=== PATIENT | male | born 1955 ===

== ENCOUNTER 2017-05-18 22:44 | Inpatient (IN) | payer MEDICARE, MEDICAID ==
[2017-05-18 23:02] VITALS: BMI 29.2
--- NOTE | 2017-05-18 23:58 | ED PDOC ---
HPI: Male Pain Chief Complaint (Provider): painful urination History Per: Patient History/Exam Limitations: no limitations Onset/Duration Of Symptoms: Days (3 days) Current Symptoms Are (Timing): Constant Pain Scale Rating Of: 10 Quality Of Discomfort: Burning Associated Symptoms: Fever, Chills, Loss Of Appetite, Constipation, Urinary Symptoms. denies: Nausea, Vomiting Alleviating Factors: None Additional History Per: Patient Additional Complaint(s): 62 yr old M presents to ED with complaint of worsening dysuria and hematuria for 4 days. Associated symptoms are loss of appetite, chills and fever. Patient reports he had a Greenlight laser procedure for tx of BPH with Dr. Flood on 05/07/17. He reports he was fine for a few days after the procedure and had no difficulty urinating. In the last 4 days he has decreased his fluid intake because "it hurts and daniels so much to urinate, bright red blood comes out". PMD: Arnold Bui Cna: Dr. Herrmann PMHx: IDDM (uncontrolled), HTN, BPH, herniated discs (lumbar spine), obesity, hypercholesterolemia, asthma, arthritis, gastritis SurgHx: Cholecystectomy, spinal injections FMHx: mother 84 yrs old with HTN/NIDDM/hx stroke, father at 88yrs old from massive stroke, siblings with BPH and HTN SocHx: denies smoking, Etoh or drugs, lives alone, worls as a helper driver Meds: Lisinopril 5mg PO QD, Januvia 50mg pO QD, Insulin Glargline 25 units QHS, Simvastatin 20 mg PO QHS, Pyridium 200mg PO QD, ASA 81mg (hasn't taken since 05/07/17), Wilber Allen Allergies: NKDA Emergency contacts: daughter Marianna Campahpi [phone]; son [facility] [phone] <Ellie So - Last Filed: 05/19/17 02:24> <Teddy Velasquez - Last Filed: 05/19/17 03:17> Time Seen by Provider: 05/18/17 23:09 Chief Complaint (Nursing): Male Genitourinary Supervising Attending Note - Attestation: I have personally seen and examined this patient.: Yes I have fully participated in the care of the patient.: Yes I have reviewed all pertinent clinical information, including history, physical exam and plan: Yes <Teddy Velasquez - Last Filed: 05/19/17 03:17> Past Medical History Vital Signs: Last Vital Signs Temp 99.8 F H 05/18/17 23:02 Pulse 84 05/18/17 23:02 Resp 18 05/18/17 23:02 BP 131/74 05/18/17 23:02 Pulse Ox 96 05/18/17 23:02 - Medical History PMH: Arthritis, Asthma, Diabetes (type II), Gastritis, HTN, Hypercholesterolemia Denies: Chronic Kidney Disease - Surgical History Surgical History: Cholecystectomy - Family History Family History: States: Stroke (mother and father), Diabetes (mother NIDDM), Hypertension - Living Arrangements Living Arrangements: Alone - Social History Current smoker - smoking cessation education provided: No Ex-Smoker (has not smoked in the last 12 months): No Alcohol: None Drugs: Denies <Ellie So - Last Filed: 05/19/17 02:24> Vital Signs: Last Vital Signs Temp 99.8 F H 05/18/17 23:02 Pulse 84 05/18/17 23:02 Resp 18 05/18/17 23:02 BP 131/74 05/18/17 23:02 Pulse Ox 96 05/19/17 02:24 <Teddy Velasquez - Last Filed: 05/19/17 03:17> - Home Medications Home Medications: Ambulatory Orders Medication Instructions Recorded Fluticasone Propionate [Flonase] 2 spr NS DAILY #1 bottle 10/21/15 Insulin Glargine, Recombina 25 units SQ HS 11/02/15 [Lantus] Simvastatin [Zocor] 20 mg PO HS 11/02/15 Lisinopril [Zestril] 5 mg PO DAILY #0 tab 11/04/15 SITagliptin [Januvia] 50 mg PO DAILY #0 tab 11/04/15 Aspirin [Aspirin Chewable] 81 mg PO DAILY 05/06/17 Ciprofloxacin [Cipro] 500 mg PO BID 05/06/17 Phenazopyridine [Pyridium] 200 mg PO DAILY 05/06/17 - Allergies Allergies/Adverse Reactions: Allergies Allergy/AdvReac Type Severity Reaction Status Date / Time No Known Allergies Allergy Verified 05/18/17 23:01 Review of Systems Constitutional: Positive for: Fever, Chills Eyes: Negative for: Vision Change ENT: Negative for: Ear Discharge, Nose Discharge Cardiovascular: Negative for: Chest Pain, Palpitations, Light Headedness Respiratory: Negative for: Cough, Shortness of Breath Gastrointestinal: Negative for: Nausea, Vomiting, Abdominal Pain Genitourinary Male: Positive for: Dysuria, Hematuria Skin: Negative for: Rash, Lesions Neurological: Negative for: Weakness, Dizziness <Ellie So - Last Filed: 05/19/17 02:24> Physical Exam - Physical Exam Appears: Positive for: Uncomfortable Head Exam: Positive for: ATRAUMATIC, NORMOCEPHALIC Eye Exam: Positive for: EOMI, PERRL ENT: Positive for: TM Is/Are (obscured by impacted cerumen bilaterally) Neck: Positive for: Normal Cardiovascular/Chest: Positive for: Regular Rate, Rhythm. Negative for: JVD, Murmur Respiratory: Positive for: Normal Breath Sounds. Negative for: Accessory Muscle Use, Rales, Rhonchi Pulses-Carotid (L): 2+ Pulses-Carotid (R): 2+ Pulses-Radial (L): 2+ Pulses-Radial (R): 2+ Gastrointestinal/Abdominal: Positive for: Bowel Sounds (normal), Soft, Tenderness (to palpation in low pelvic area). Negative for: Mass, Distended, Guarding Back: Negative for: L CVA Tenderness, R CVA Tenderness Extremity: Positive for: Normal ROM. Negative for: Pedal Edema, Deformity Neurologic/Psych: Positive for: Alert, cyanide pot tender II-XII, Oriented, Gait (normal) <Ellie So - Last Filed: 05/19/17 02:24> - Laboratory Results Result Diagrams: 05/18/17 23:59 05/18/17 23:59 - ECG O2 Sat by Pulse Oximetry: 96 - Progress ED Course And Treament: -CBC, CMP, lactic acid, UA, PT/PTT, Blood Cx, Urine Cx, Type and screen, Ketorolac 15mg IV - WBC 15, CT abd and pelvis without IV or PO contrast: instrumentation vs infection, possible prostatic abscess -Urology consult: Dr. Flood: Ceftriaxone and IV fluids -Admit to hospital Condition: Unchanged <Ellie So - Last Filed: 05/19/17 02:24> - Laboratory Results Result Diagrams: 05/18/17 23:59 05/18/17 23:59 <Teddy Velasquez - Last Filed: 05/19/17 03:17> Disposition - Patient ED Disposition Is Patient to be Admitted: Yes Discussed With : Artur Flood Doctor Will See Patient In The: Hospital - Disposition Disposition Time: 02:20 - Pt Status Changed To: Hospital Disposition Of: Inpatient - Admit Certification Admit to Inpatient:: After my assessment, the patient will require hospitalization for at least two midnights. This is because of the severity of symptoms shown, intensity of services needed, and/or the medical risk in this patient being treated as an outpatient. <Ellie So - Last Filed: 05/19/17 02:24> <Teddy Velasquez - Last Filed: 05/19/17 03:17> - Clinical Impression Clinical Impression: Urinary tract infection - Disposition Condition: FAIR
[2017-05-19 00:10] LABS: BASO # 0.1 K/uL (0.0-0.2); BASO % 0.9 % (0.0-2.0); EOS # 0.4 K/uL (0.0-0.7); EOS % 2.9 % (0.0-4.0); LYMPH % 13.2 % (20.0-40.0); MEAN CORPUSCULAR HGB CONC 32.6 g/dL (33.0-37.0); MEAN PLATELET VOLUME 8.1 fl (7.2-11.7); MONO # 0.7 K/uL (0.0-0.8); MONO % 4.5 % (0.0-10.0); NEUT # 11.8 K/uL (1.8-7.0); NEUT % 78.5 % (50.0-75.0); RED CELL DISTRIBUTION WIDTH 13.3 % (11.5-14.5)
[2017-05-19 00:20] LABS: PARTIAL THROMBOPLASTIN TIME 30.6 Seconds (25.6-37.1)
[2017-05-19 00:24] LABS: ALB/GLOB RATIO 1.2 (1.0-2.1); ALKALINE PHOSPHATASE 107 U/L (38-126); ALT/SGPT 37 U/L (21-72); AST/SGOT 21 U/L (17-59); BILIRUBIN,TOTAL 0.2 mg/dl (0.2-1.3); BLOOD UREA NITROGEN 20 mg/dl (9-20); CARBON DIOXIDE 24 mmol/L (22-30); CHLORIDE 103 mmol/L (98-107); GFR AFRICAN-AMERICAN > 60; GLUCOSE,RANDOM 275 mg/dL (75-110); POTASSIUM 4.2 MMOL/L (3.6-5.0); SODIUM 138 mmol/l (132-148)
[2017-05-19 00:42] LABS: RBC URINE 853 /hpf (0-3); URINE BACTERIA OCC (<OCC); URINE BILIRUBIN NEGATIVE (NEGATIVE); URINE BLOOD LARGE (NEGATIVE); URINE COLOR YELLOW (YELLOW); URINE GLUCOSE (UA) 50 mg/dL (Normal); URINE KETONE NEGATIVE (NEGATIVE); URINE LEUKOCYTE ESTERASE MOD Leu/uL (Negative); URINE PROTEIN >=500 mg/dL (NEGATIVE); URINE UROBILINOGEN 0.2-1.0 mg/dL (0.2-1.0); WBC URINE 345 /hpf (0-5)
--- NOTE | 2017-05-19 01:57 | CT ---
EXAM: CT Abdomen and Pelvis Without Intravenous Contrast EXAM DATE/TIME: 05/19/2017 12:18 AM CLINICAL HISTORY: 62 years old, male; Pain; Abdominal pain; Localized; Lower; Additional info: Hematuria, recent prostate procedure TECHNIQUE: Axial computed tomography images of the abdomen and pelvis without intravenous contrast. All CT scans at this facility use one or more dose reduction techniques, viz.: automated exposure control; ma/kV adjustment per patient size (including targeted exams where dose is matched to indication; i.e. head); or iterative reconstruction technique. Coronal and sagittal reformatted images were created and reviewed. COMPARISON: There are no prior studies for comparison. FINDINGS: Lower thorax: Heart size is normal. There is a hiatal hernia. There is airspace disease at the lung bases left greater than right. There is scarring at the lung bases. ABDOMEN: Liver: unremarkable Gallbladder and bile ducts: Gallbladder is absent.There is prominence of the common duct. Pancreas: Pancreas is mildly atrophic. Spleen: unremarkable Adrenals: There is small adrenal nodules. Kidneys and ureters: unremarkable Stomach and bowel: Stomach is incompletely distended. There is minimal radiopaque material in the stomach. Rotation is normal. There is fluid and air throughout the small bowel. There is no small bowel obstruction. Ileocecal region is unremarkable. Appendix and terminal ileum are unremarkable.There is scattered diverticulosis. Colon is incompletely distended which limits evaluation. Appendix: See stomach and bowel PELVIS: Bladder: Bladder is partially distended. There is mild bladder wall thickening. There is air in the bladder. Reproductive: The prostate is enlarged. There is a low attenuation mass in the prostate 2.6 x 3 cm. There is air in the periphery greatest anteriorly. There is prominence of the seminal vesicles. ABDOMEN and PELVIS: Intraperitoneal space:There is no free air. There is no free fluid. There is mild inflammation and edema in the pelvis. Bones/joints: There are degenerative changes in the osseus structures. Soft tissues: There is a small fat containing umbilical hernia. Vasculature: There are multiple phleboliths.There are vascular calcifications. Lymph nodes: There is shotty adenopathy. IMPRESSION: Bladder wall thickening, underdistention versus inflammation or muscular hypertrophy; air in the bladder recent instrumentation versus infection; low-attenuation prostate mass with air, post operative change versus infection Additional findings as described above.
[2017-05-19] MEDS ORDERED: Sodium Chloride 0.9% 1,000 ML IV STA ×2 (02:19→03:58)
[2017-05-19] MEDS ORDERED: cefTRIAXone 2 GM in Sodium Chloride 0.9% 100 ML IVPB STA (02:49)
[2017-05-19 02:58] LABS: VENOUS BLOOD GAS BASE EXCESS 2.4 mmol/L (0.0-2.0); VENOUS BLOOD GAS PCO2 42 mmHg (40-60); VENOUS BLOOD PH 7.42 (7.32-7.43)
[2017-05-19] MEDS ORDERED: cefTRIAXone 2 GM in Sodium Chloride 0.9% 100 ML IVPB SCH (09:00)
[2017-05-19] MEDS: Sodium Chloride 0.9% 1,000 ML IV SCH ×2 (09:13→17:56)
[2017-05-19] MEDS: Insulin Lispro (humaLOG) 100 Units/ml Inj SC SCH ×4 (11:28→22:02)
--- NOTE | 2017-05-19 12:19 | HP ---
ADMITTING HISTORY AND PHYSICAL HISTORY OF PRESENT ILLNESS: Mr. 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 He is status post GreenLight laser procedure about [address] Flood, the urologist and indicated that he had been feeling well until recently. He was seen in the emergency room and diagnosed with prostatitis and urinary tract infection with hematuria and admitted for workup and therapy. PAST MEDICAL HISTORY: Remarkable for diabetes mellitus, hypertension, benign prostatic hypertrophy, disk disease with lumbar spine involvement, obesity, hyperlipidemia, asthma, arthritis and gastritis. FAMILY HISTORY: Nonrevealing. 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 REVIEW OF SYSTEMS: Essentially remarkable for some difficulty with passing urine. PHYSICAL EXAMINATION: GENERAL: The patient is alert, oriented, appears to be much improved since being admitted to the hospital and been medicated with antibiotics, analgesics and given IV fluids. VITAL SIGNS: Blood pressure 131/77, pulse of 79, respiratory rate is 20, he is afebrile, O2 sat is 95% on room air. SKIN: Shows fair turgor. HEENT: Pupils equal and reactive to light and accommodation. Mouth shows fair hygiene. NECK: JVP flat. LUNGS: Clear. HEART: Regular. No murmurs or gallop. ABDOMEN: Soft with suprapubic tenderness. No organomegaly appreciated. There are normoactive bowel sounds. EXTREMITIES: Show no edema or cyanosis. GENITALIA: Normal. RECTAL: Normal. CENTRAL NERVOUS SYSTEM: Grossly intact. LABORATORY DATA: Remarkable for urinalysis does show large amounts of rbc's, large amounts of wbc's, occasional bacteria, occasional budding yeasts. WBC 15.0, hemoglobin 13.0, platelet count 396,000. Sodium 138, potassium 4.2, BUN of 20, creatinine 0.9, serum glucose 231, lactate 0.9. CT scan of abdomen and pelvis done in the emergency room was compatible with bladder wall thickening, under distention versus inflammation or muscular hypertrophy in the bladder due to recent instrumentation versus infection. Low-attenuation prostates. Mass with air. Postoperative changes versus infection. IMPRESSION: Hematuria with probable prostatitis and urinary tract infection. Rule out prostatic abscess, diabetes mellitus with hyperglycemia (poorly controlled), history of hypertension, history of asthma, history of disk disease. PLAN: IV hydration, analgesics for pains, IV antibiotics, Urology reevaluation. Further therapy will depend on Urology consultation. Mp Torres MD
[2017-05-19] MEDS ORDERED: INSULIN GLARGINE SQ SCH (22:00)
[2017-05-19] MEDS: Insulin Detemir 100 Units/ml Inj SC SCH (22:31)
[2017-05-20] MEDS: Sodium Chloride 0.9% 1,000 ML IV SCH (01:32)
[2017-05-20 06:13] LABS: BASO # 0.1 K/uL (0.0-0.2); BASO % 1.3 % (0.0-2.0); EOS # 0.5 K/uL (0.0-0.7); EOS % 4.6 % (0.0-4.0); HEMATOCRIT 38.8 % (35.0-51.0); LYMPH % 18.5 % (20.0-40.0); MEAN CORPUSCULAR HEMOGLOBIN 26.9 pg (27.0-31.0); MEAN CORPUSCULAR HGB CONC 32.4 g/dL (33.0-37.0); MEAN PLATELET VOLUME 7.9 fl (7.2-11.7); MONO # 0.6 K/uL (0.0-0.8); NEUT # 7.8 K/uL (1.8-7.0); NEUT % 70.6 % (50.0-75.0); RED CELL DISTRIBUTION WIDTH 13.2 % (11.5-14.5)
[2017-05-20 06:42] LABS: BLOOD UREA NITROGEN 13 mg/dl (9-20); CALCIUM 8.6 mg/dL (8.4-10.2); CARBON DIOXIDE 25 mmol/L (22-30); CHLORIDE 107 mmol/L (98-107); GFR AFRICAN-AMERICAN > 60; GLUCOSE,RANDOM 142 mg/dL (75-110); SODIUM 140 mmol/l (132-148)
[2017-05-20] MEDS: Insulin Lispro (humaLOG) 100 Units/ml Inj SC SCH ×4 (07:12→22:00)
[2017-05-20] MEDS: cefTRIAXone 2 GM in Sodium Chloride 0.9% 100 ML IVPB SCH (08:25)
--- NOTE | 2017-05-20 09:22 | CP.PCM.PN ---
Subjective - Date & Time of Evaluation Date of Evaluation: 05/20/17 Time of Evaluation: 09:24 - Subjective Subjective: DYSURIA IMPROVING HEMATURIA IMPROVING Objective - Vital Signs/Intake and Output Vital Signs (last 24 hours): Temp Pulse Resp BP Pulse Ox 98.4 F 77 20 137/78 97 05/20/17 07:36 05/20/17 08:25 05/20/17 07:36 05/20/17 08:25 05/20/17 07:36 Intake and Output: 05/20/17 05/20/17 06:59 18:59 Intake Total 250 Output Total 550 Balance -300 - Medications Medications: Current Medications Atorvastatin Calcium (Lipitor) 20 mg PO DAILY [facility] Home Med (Insulin Glargine, Recombina [Lantus]) 25 units SQ HS [facility] Ceftriaxone Sodium 2 gm/ (Sodium Chloride) 100 mls @ 100 mls/hr IVPB DAILY [facility] PRN Reason: Protocol Last Admin: 05/20/17 08:25 Dose: 100 mls/hr Insulin Detemir (Levemir) 25 units SC HS [facility] Last Admin: 05/19/17 22:31 Dose: 25 units Insulin Human Lispro (Humalog) 0 units SC ACHS [facility] PRN Reason: Protocol Last Admin: 05/20/17 07:12 Dose: Not Given Ketorolac Tromethamine (Toradol) 15 mg IVP Q8 PRN PRN Reason: Pain, severe (8-10) Last Admin: 05/19/17 21:28 Dose: 15 mg Lisinopril (Zestril) 5 mg PO DAILY [facility] Last Admin: 05/20/17 08:25 Dose: 5 mg Phenazopyridine HCl (Pyridium) 200 mg PO DAILY [facility] Last Admin: 05/20/17 08:24 Dose: 200 mg Sitagliptin Phosphate (Januvia) 50 mg PO DAILY [facility] Last Admin: 05/20/17 08:24 Dose: 50 mg - Labs Labs: 05/20/17 05:20 05/20/17 05:20 PT 11.9 Seconds (9.8-13.1) 05/18/17 23:59 INR 1.1 (0.9-1.2) 05/18/17 23:59 APTT 30.6 Seconds (25.6-37.1) 05/18/17 23:59 - Constitutional Appears: No Acute Distress - Head Exam Head Exam: ATRAUMATIC, NORMAL INSPECTION, NORMOCEPHALIC - Eye Exam Eye Exam: EOMI, Normal appearance, PERRL Pupil Exam: NORMAL ACCOMODATION, PERRL - ENT Exam ENT Exam: Mucous Membranes Moist, Normal Exam - Neck Exam Neck Exam: Full ROM, Normal Inspection. absent: Lymphadenopathy - Respiratory Exam Respiratory Exam: Clear to Ausculation Bilateral, NORMAL BREATHING PATTERN - Cardiovascular Exam Cardiovascular Exam: REGULAR RHYTHM, +S1, +S2. absent: Murmur - GI/Abdominal Exam GI & Abdominal Exam: Soft, Normal Bowel Sounds. absent: Tenderness - Rectal Exam Rectal Exam: NORMAL INSPECTION - Extremities Exam Extremities Exam: Full ROM, Normal Capillary Refill, Normal Inspection. absent : Joint Swelling, Pedal Edema - Back Exam Back Exam: NORMAL INSPECTION - Neurological Exam Neurological Exam: Alert, Awake, CN II-XII Intact, Normal Gait, Oriented x3 - Psychiatric Exam Psychiatric exam: Normal Affect, Normal Mood - Skin Skin Exam: Dry, Intact, Normal Color, Warm Assessment and Plan - Assessment and Plan (Free Text) Assessment: ACUTE PROSTATITIS PROSTATIC ABSCESS UTI DM HTN HYPERLIPIDEMIA Plan: CONTINUE IV ANTIBIOTICS AND ANALGESICS FOR PAIN AWAIT UROLOGY EVAL DISCHARGE IN AM IF STABLE
[2017-05-20] MEDS: Dextrose 5%/0.45% NS 1,000 ML IV SCH (09:53)
[2017-05-20] MEDS: Insulin Detemir 100 Units/ml Inj SC SCH (22:00)
[2017-05-21 01:02] VITALS: RESP 20
[2017-05-21] MEDS: Insulin Lispro (humaLOG) 100 Units/ml Inj SC SCH ×2 (07:00→12:40)
[2017-05-21 07:37] VITALS: BP 129/71; TEMP 98.1; O2SAT 95
[2017-05-21] MEDS: cefTRIAXone 2 GM in Sodium Chloride 0.9% 100 ML IVPB SCH (08:50)
--- NOTE | 2017-05-21 08:50 | CP.PCM.PN ---
Subjective - Date & Time of Evaluation Date of Evaluation: 05/21/17 Time of Evaluation: 08:40 - Subjective Subjective: UROLOGY Pt seen yesterday for gross hematuria followinf Laser TURP. 10 days prior. 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 Logic did not prevail and he returned to work on Saturday and the symptoms got much worse. He came to er and was admitted for gross hematuria and elevated WBC. With hydration, I(V antibiotics and rest the urine has completely resolved He can be discharged today with advise not to return to work until next week. I would suggest to give RX for ipro 500 mg #14 PO bid Objective - Vital Signs/Intake and Output Vital Signs (last 24 hours): Temp Pulse Resp BP Pulse Ox 98.1 F 64 20 129/71 95 05/21/17 07:36 05/21/17 07:36 05/21/17 07:36 05/21/17 07:36 05/21/17 07:36 Intake and Output: 05/21/17 05/21/17 06:59 18:59 Intake Total 984 Output Total 1060 Balance -76 - Medications Medications: Current Medications Atorvastatin Calcium (Lipitor) 20 mg PO DAILY [facility] Last Admin: 05/20/17 22:00 Dose: 20 mg Home Med (Insulin Glargine, Recombina [Lantus]) 25 units SQ HS [facility] Ceftriaxone Sodium 2 gm/ (Sodium Chloride) 100 mls @ 100 mls/hr IVPB DAILY [facility] PRN Reason: Protocol Last Admin: 05/20/17 08:25 Dose: 100 mls/hr Dextrose/Sodium Chloride (Dextrose 5%/0.45% Ns 1000 Ml) 1,000 mls @ 42 mls/hr IV .[id number] [facility] Stop: 05/21/17 09:24 Last Admin: 05/20/17 09:53 Dose: 42 mls/hr Insulin Detemir (Levemir) 25 units SC HS [facility] Last Admin: 05/20/17 22:00 Dose: 25 units Insulin Human Lispro (Humalog) 0 units SC ACHS [facility] PRN Reason: Protocol Last Admin: 05/21/17 07:00 Dose: Not Given Ketorolac Tromethamine (Toradol) 15 mg IVP Q8 PRN PRN Reason: Pain, severe (8-10) Last Admin: 05/21/17 02:23 Dose: 15 mg Lisinopril (Zestril) 5 mg PO DAILY [facility] Last Admin: 05/20/17 08:25 Dose: 5 mg Phenazopyridine HCl (Pyridium) 200 mg PO DAILY [facility] Last Admin: 05/20/17 08:24 Dose: 200 mg Sitagliptin Phosphate (Januvia) 50 mg PO DAILY [facility] Last Admin: 05/20/17 08:24 Dose: 50 mg - Labs Labs: 05/20/17 05:20 05/20/17 05:20 PT 11.9 Seconds (9.8-13.1) 05/18/17 23:59 INR 1.1 (0.9-1.2) 05/18/17 23:59 APTT 30.6 Seconds (25.6-37.1) 05/18/17 23:59
[2017-05-21 08:51] VITALS: PULSE 74
--- NOTE | 2017-05-21 09:48 | CP.PCM.DIS ---
Provider - Provider Date of Admission: 05/19/17 10:06 Attending physician: Mp Torres MD Time Spent in preparation of Discharge (in minutes): 30 Diagnosis - Discharge Diagnosis (1) Prostatitis Status: Acute (2) Hypertension Status: Acute (3) Urinary tract infection Status: Acute (4) Type 2 diabetes mellitus without complications Status: Chronic (5) Hyperlipidemia Status: Acute Hospital Course - Lab Results Lab Results: Micro Results 05/18/17 23:57 Blood Blood Culture - Preliminary NO GROWTH AFTER 48 HOURS 05/18/17 00:30 Blood Blood Culture - Preliminary NO GROWTH AFTER 48 HOURS 05/18/17 23:57 Urine Urine Culture - Final Yeast Species Most Recent Lab Values WBC 11.0 K/uL (4.8-10.8) H 05/20/17 05:20 RBC 4.67 Mil/uL (4.40-5.90) 05/20/17 05:20 Hgb 12.6 g/dL (12.0-18.0) 05/20/17 05:20 Hct 38.8 % (35.0-51.0) 05/20/17 05:20 MCV 83.0 fl (80.0-94.0) 05/20/17 05:20 MCH 26.9 pg (27.0-31.0) L 05/20/17 05:20 MCHC 32.4 g/dL (33.0-37.0) L 05/20/17 05:20 RDW 13.2 % (11.5-14.5) 05/20/17 05:20 Plt Count 406 K/uL (130-400) H 05/20/17 05:20 MPV 7.9 fl (7.2-11.7) 05/20/17 05:20 Neut % (Auto) 70.6 % (50.0-75.0) 05/20/17 05:20 Lymph % (Auto) 18.5 % (20.0-40.0) L 05/20/17 05:20 [place] % (Auto) 5.0 % (0.0-10.0) 05/20/17 05:20 Eos % (Auto) 4.6 % (0.0-4.0) H 05/20/17 05:20 Baso % (Auto) 1.3 % (0.0-2.0) 05/20/17 05:20 Neut # 7.8 K/uL (1.8-7.0) H 05/20/17 05:20 Lymph # 2.0 K/uL (1.0-4.3) 05/20/17 05:20 [place] # 0.6 K/uL (0.0-0.8) 05/20/17 05:20 Eos # 0.5 K/uL (0.0-0.7) 05/20/17 05:20 Baso # 0.1 K/uL (0.0-0.2) 05/20/17 05:20 PT 11.9 Seconds (9.8-13.1) 05/18/17 23:59 INR 1.1 (0.9-1.2) 05/18/17 23:59 APTT 30.6 Seconds (25.6-37.1) 05/18/17 23:59 pO2 35 mm/Hg (30-55) 05/19/17 02:50 VBG pH 7.42 (7.32-7.43) 05/19/17 02:50 VBG pCO2 42 mmHg (40-60) 05/19/17 02:50 VBG HCO3 26.0 mmol/L 05/19/17 02:50 VBG Total CO2 28.5 mmol/L (22-28) H 05/19/17 02:50 VBG O2 Sat (Calc) 75.6 % (40-65) H 05/19/17 02:50 VBG Base Excess 2.4 mmol/L (0.0-2.0) H 05/19/17 02:50 VBG Potassium 4.3 mmol/L (3.6-5.2) 05/19/17 02:50 Sodium 134.0 mmol/L (132-148) 05/19/17 02:50 Chloride 101.0 mmol/L (98-107) 05/19/17 02:50 Glucose 286 mg/dL (75-110) H 05/19/17 02:50 Lactate 0.8 mmol/L (0.7-2.1) 05/19/17 02:50 FiO2 21.0 % 05/19/17 02:50 Sodium 140 mmol/l (132-148) 05/20/17 05:20 Potassium 4.0 MMOL/L (3.6-5.0) 05/20/17 05:20 Chloride 107 mmol/L (98-107) 05/20/17 05:20 Carbon Dioxide 25 mmol/L (22-30) 05/20/17 05:20 Anion Gap 12 (10-20) 05/20/17 05:20 BUN 13 mg/dl (9-20) 05/20/17 05:20 Creatinine 0.7 mg/dl (0.8-1.5) L 05/20/17 05:20 Est GFR ( Amer) > 60 05/20/17 05:20 Est GFR (Non-Af Amer) > 60 05/20/17 05:20 POC Glucose (mg/dL) 131 mg/dL (65-110) H 05/21/17 05:37 Random Glucose 142 mg/dL (75-110) H 05/20/17 05:20 Lactic Acid 0.9 MMOL/L (0.7-2.1) 05/18/17 23:59 Calcium 8.6 mg/dL (8.4-10.2) 05/20/17 05:20 Total Bilirubin 0.2 mg/dl (0.2-1.3) 05/18/17 23:59 AST 21 U/L (17-59) 05/18/17 23:59 ALT 37 U/L (21-72) 05/18/17 23:59 Alkaline Phosphatase 107 U/L (38-126) 05/18/17 23:59 Total Protein 7.0 G/DL (6.3-8.2) 05/18/17 23:59 Albumin 3.8 g/dL (3.5-5.0) 05/18/17 23:59 Globulin 3.2 gm/dL (2.2-3.9) 05/18/17 23:59 Albumin/Globulin Ratio 1.2 (1.0-2.1) 05/18/17 23:59 Venous Blood Potassium 4.3 mmol/L (3.6-5.2) 05/19/17 02:50 Urine Color Yellow (YELLOW) 05/18/17 23:59 Urine Clarity Cloudy (Clear) 05/18/17 23:59 Urine pH 5.0 (5.0-8.0) 05/18/17 23:59 Ur Specific [place] 1.028 (1.003-1.030) 05/18/17 23:59 Urine Protein >=500 mg/dL (NEGATIVE) 05/18/17 23:59 Urine Glucose (UA) 50 mg/dL (Normal) 05/18/17 23:59 Urine Ketones Negative mg/dL (NEGATIVE) 05/18/17 23:59 Urine Blood Large (NEGATIVE) 05/18/17 23:59 Urine Nitrate Negative (NEGATIVE) 05/18/17 23:59 Urine Bilirubin Negative (NEGATIVE) 05/18/17 23:59 Urine Urobilinogen 0.2-1.0 mg/dL (0.2-1.0) 05/18/17 23:59 Ur Leukocyte Esterase Mod [place]/uL (Negative) 05/18/17 23:59 Urine RBC (Auto) 853 /hpf (0-3) H 05/18/17 23:59 Urine Microscopic WBC 345 /hpf (0-5) H 05/18/17 23:59 Ur Squamous Epith Cells 1 /hpf (0-5) 05/18/17 23:59 Urine Bacteria Occ (<OCC) H 05/18/17 23:59 Urine Yeast (Budding) Occ /hpf (NEGATIVE) H 05/18/17 23:59 Blood Type O POSITIVE 05/18/17 23:42 Blood Type Confirm O POSITIVE 05/19/17 00:55 Antibody Screen Negative 05/18/17 23:42 BBK History Checked No verified bt 05/18/17 23:42 - Hospital Course Hospital Course: dysuria resolved urine--yeast Discharge Exam - Head Exam Head Exam: ATRAUMATIC, NORMAL INSPECTION, NORMOCEPHALIC - Eye Exam Eye Exam: EOMI, Normal appearance, PERRL Pupil Exam: NORMAL ACCOMODATION, PERRL - GI/Abdominal Exam GI & Abdominal Exam: Normal Bowel Sounds - Rectal Exam Rectal Exam: NORMAL INSPECTION - Neurological Exam Neurological exam: Alert, CN II-XII Intact, Normal Gait, Oriented x3, Reflexes Normal - Psychiatric Exam Psychiatric exam: Normal Affect, Normal Mood - Skin Skin Exam: Dry, Intact, Normal Color, Warm Discharge Plan - Follow Up Plan Condition: FAIR Disposition: HOME/ ROUTINE Patient education suggested?: Yes Instructions: Prostatitis (DC), Acute Hematuria (DC) Referrals: Artur Flood MD [Medical Doctor] - Ronel Herrmann MD [Medical Doctor] - Arnold Han MD [Family Provider] -
[2017-05-21] MEDS: Dextrose 5%/0.45% NS 1,000 ML IV SCH (10:05)
--- NOTE | 2017-05-22 08:51 | PQF GENQUE ---
This form is a permanent part of the medical record DR. MAIA BRAGG: COULD YOU PLEASE CONFIRM THE CAUSE OF HEMATURIA OR UNDETERMINED. Clarification of your documentation is requested to better reflect the severity of illness and intensity of treatment of your patient. Indicators present [] Specify: [] [] Specify: [] [] Specify: [] [] Specify: [] Location in the medical record that reflects the above clinical findings: [] Treatment Provided: [] PHYSICIAN'S RESPONSE Based on your medical judgment of the clinical indicators outlined above please clarify the following: [x] Practitioner response --HEMATURIA DUE TO ACUTE PROSTATITIS [] If unable to determine, please check the box, sign and date. Present On Admission (POA) Indicator: [] Present at the time of admission [] Not present at the time of admission [] Clinically Undetermined In responding to this query, please exercise your independent professional judgment. The fact that a question is asked does not imply that any particular answer is desired or expected. Thank you for your clarification on this documentation. If you have any questions please call:[ ] * Thank you, * JAY JAY FELIPE [ [phone] thread clipper VICTORIA
== END 2017-05-21 14:33 | disposition home or self-care (01) | DRG 728 ==
LOC: H.ER 22:44 → H.ERHOLD 05-19 02:18 → H.MEDSURG1 05-19 04:15 → OBSVTOIN 05-19 10:06
PROVIDERS: ADMIT Internal Medicine Pulmonary Disease; ATTEND Internal Medicine Pulmonary Disease
DX: N41.0 Acute prostatitis (principal); E11.65 Type 2 diabetes mellitus with hyperglycemia; I10 Essential (primary) hypertension; N39.0 Urinary tract infection, site not specified; N41.2 Abscess of prostate; E11.9 Type 2 diabetes mellitus without complications; E78.00 Pure hypercholesterolemia, unspecified; E78.5 Hyperlipidemia, unspecified; J45.909 Unspecified asthma, uncomplicated; N40.0 Benign prostatic hyperplasia without lower urinary tract symptoms; R31.0 Gross hematuria; Z79.4 Long term (current) use of insulin; Z79.899 Other long term (current) drug therapy; Z82.3 Family history of stroke; Z82.49 Family history of ischemic heart disease and other diseases of the circulatory system; Z83.3 Family history of diabetes mellitus; E66.9 Obesity, unspecified; Z68.29 Body mass index [BMI] 29.0-29.9, adult; K29.70 Gastritis, unspecified, without bleeding; M19.90 Unspecified osteoarthritis, unspecified site; Z79.84 Long term (current) use of oral hypoglycemic drugs; R30.0 Dysuria

== ENCOUNTER 2017-07-08 16:05 | Emergency (ER) | payer MEDICARE, MEDICAID ==
[2017-07-08 16:05] VITALS: BMI 29.2
[2017-07-08 16:34] VITALS: BP 123/63; PULSE 94; RESP 16; TEMP 99.2; O2SAT 100
[2017-07-08] MEDS ORDERED: Albuterol-Ipratrop 3 mg / 0.5 (3 ml) UD INH STA (16:51)
--- NOTE | 2017-07-08 16:56 | ED PDOC ---
HPI: CCC, URI, Sore Throat Time Seen by Provider: 07/08/17 16:50 Chief Complaint (Nursing): Flu-like Symptoms Chief Complaint (Provider): Cough, fever, chills History Per: Patient History/Exam Limitations: no limitations Onset/Duration Of Symptoms: Days (1) Additional Complaint(s): Patient is a 62 y/o male with a past medical history of asthma presenting to the emergency department for a cough, fever, chills, and a sore throat ongoing for one day. Reports using a pump but it may not be working well. Reports known sick contacts. Denies any other complaints. PCP: none provided. Past Medical History Reviewed: Historical Data, Nursing Documentation, Vital Signs Vital Signs: Last Vital Signs Temp 99.2 F 07/08/17 16:31 Pulse 94 H 07/08/17 16:31 Resp 16 07/08/17 16:31 BP 123/63 07/08/17 16:31 Pulse Ox 100 07/08/17 16:59 - Medical History PMH: Arthritis, Asthma, Diabetes (type II), Gastritis, HTN, Hypercholesterolemia Denies: Chronic Kidney Disease - Surgical History Surgical History: Cholecystectomy - Family History Family History: States: Unknown Family Hx, Stroke (mother and father), Diabetes (mother NIDDM), Hypertension - Home Medications Home Medications: Ambulatory Orders Medication Instructions Recorded Fluticasone Propionate [Flonase] 2 spr NS DAILY #1 bottle 10/21/15 Insulin Glargine, Recombina 25 units SQ HS 11/02/15 [Lantus] Simvastatin [Zocor] 20 mg PO HS 11/02/15 Lisinopril [Zestril] 5 mg PO DAILY #0 tab 11/04/15 Aspirin [Aspirin Chewable] 81 mg PO DAILY 05/06/17 Ciprofloxacin [Cipro] 500 mg PO BID 05/06/17 Phenazopyridine [Pyridium] 200 mg PO DAILY 05/06/17 SITagliptin [Januvia] 50 mg PO BID 05/19/17 Fluconazole [Diflucan] 100 mg PO DAILY #5 tab 05/21/17 Acetaminophen [Acetaminophen Extra 2 tab PO Q6 PRN #24 tablet 07/08/17 Strength] Albuterol HFA [Ventolin HFA 90 2 puff IH [id number] PRN #1 inhaler 07/08/17 mcg/actuation (8 g)] Oseltamivir [Tamiflu] 75 mg PO BID #9 cap 07/08/17 Promethazine/Codeine 5 ml PO DAILY PRN #100 ml 07/08/17 [Codeine/Promethazine 10 MG/5 Ml-6.25 MG/5 Ml] - Allergies Allergies/Adverse Reactions: Allergies Allergy/AdvReac Type Severity Reaction Status Date / Time No Known Allergies Allergy Verified 05/18/17 23:01 Review of Systems ROS Statement: Except As Marked, All Systems Reviewed And Found Negative Constitutional: Positive for: Fever, Chills ENT: Positive for: Throat Pain Respiratory: Positive for: Cough Physical Exam - Reviewed Nursing Documentation Reviewed: Yes Vital Signs Reviewed: Yes - Physical Exam Appears: Positive for: Well, Non-toxic, No Acute Distress Head Exam: Positive for: ATRAUMATIC, NORMAL INSPECTION, NORMOCEPHALIC Skin: Positive for: Normal Color, Warm, Dry Eye Exam: Positive for: Normal appearance ENT: Positive for: Normal ENT Inspection, Pharynx Is (normal). Negative for: Pharyngeal Erythema Neck: Positive for: Normal, Painless ROM Cardiovascular/Chest: Positive for: Regular Rate, Rhythm Respiratory: Positive for: Accessory Muscle Use, Rhonchi (rhonchi bilaterally), Respiratory Distress. Negative for: Normal Breath Sounds Neurologic/Psych: Positive for: Alert, Oriented (x3) - ECG O2 Sat by Pulse Oximetry: 100 (RA) Pulse Ox Interpretation: Normal Medical Decision Making Medical Decision Making: Time: 16:50 Initial impression: cough, fever, chills, sore throat Initial plan: Albuterol 3 mL INH Toradol 30 mg IM Oseltamivir 75 mg PO Peak flow assessment pre and post treatment ~ Scribe Attestation: Documented by Marcia Urena, acting as a scribe for CODI Quach. Provider Scribe Attestation: All medical record entries made by the Scribe were at my direction and personally dictated by me. I have reviewed the chart and agree that the record accurately reflects my personal performance of the history, physical exam, medical decision making, and the department course for this patient. I have also personally directed, reviewed, and agree with the discharge instructions and disposition. Disposition - Clinical Impression Clinical Impression: Influenza - Patient ED Disposition Is Patient to be Admitted: No - Disposition Disposition: Routine/Home Disposition Time: 17:19 Condition: FAIR Prescriptions: Albuterol HFA [Ventolin HFA 90 mcg/actuation (8 g)] 2 puff IH [id number] PRN #1 inhaler PRN Reason: Cough Acetaminophen [Acetaminophen Extra Strength] 2 tab PO Q6 PRN #24 tablet PRN Reason: Fever >100.4 F Oseltamivir [Tamiflu] 75 mg PO BID #9 cap Promethazine/Codeine [Codeine/Promethazine 10 MG/5 Ml-6.25 MG/5 Ml] 5 ml PO DAILY PRN #100 ml PRN Reason: Cough Instructions: Influenza (ED) Forms: [facility] ([place]), [facility] ED School/Work Excuse Print Language: KYRGYZ
[2017-07-08] MEDS ORDERED: Albuterol-Ipratrop 3 mg / 0.5 (3 ml) UD ONE (17:08)
== END 2017-07-08 18:05 | disposition home or self-care (01) ==
LOC: H.ER 16:05
DX: J10.1 Influenza due to other identified influenza virus with other respiratory manifestations (principal)
CPT/HCPCS: 94640; 96372; 99281; J1885

== ENCOUNTER 2017-08-12 06:34 | Emergency (ER) | payer MEDICARE, MEDICAID ==
[2017-08-12 06:35] VITALS: BMI 29.2
[2017-08-12 06:59] VITALS: BP 134/78; PULSE 70; RESP 16; TEMP 98.3; O2SAT 96
--- NOTE | 2017-08-12 07:31 | ED PDOC ---
Upper Extremity Pain/Injury Time Seen by Provider: 08/12/17 07:11 Chief Complaint (Nursing): Upper Extremity Problem/Injury Chief Complaint (Provider): Upper Extremity Problem History Per: Patient History/Exam Limitations: no limitations Onset/Duration Of Symptoms: Persistent, Other (x2 months) Current Symptoms Are (Timing): Still Present Quality: Sharp Exacerbating Factor(s): Movement Additional Complaint(s): 62 year old male presents to ED with complaints of left shoulder pain x2 months and has a past medical history of asthma and HTN. Describes pain as sharp and radiating down his left arm. Notes that pain is worse with movement but denies acute injury or fall. Denies taking any medications for pain. PCP: ROLAND Past Medical History Reviewed: Historical Data, Nursing Documentation, Vital Signs Vital Signs: Last Vital Signs Temp 98.3 F 08/12/17 06:56 Pulse 70 08/12/17 06:56 Resp 16 08/12/17 06:56 BP 134/78 08/12/17 06:56 Pulse Ox 96 08/12/17 06:56 - Medical History PMH: Arthritis, Asthma, Diabetes (type II), Gastritis, HTN, Hypercholesterolemia Denies: Chronic Kidney Disease - Surgical History Surgical History: Cholecystectomy - Family History Family History: States: Unknown Family Hx, Stroke (mother and father), Diabetes (mother NIDDM), Hypertension - Living Arrangements Living Arrangements: With Family - Social History Current smoker - smoking cessation education provided: No Ex-Smoker (has not smoked in the last 12 months): No Alcohol: None Drugs: Denies - Home Medications Home Medications: Ambulatory Orders Medication Instructions Recorded Fluticasone Propionate [Flonase] 2 spr NS DAILY #1 bottle 10/21/15 Insulin Glargine, Recombina 25 units SQ HS 11/02/15 [Lantus] Simvastatin [Zocor] 20 mg PO HS 11/02/15 Lisinopril [Zestril] 5 mg PO DAILY #0 tab 11/04/15 Aspirin [Aspirin Chewable] 81 mg PO DAILY 05/06/17 Ciprofloxacin [Cipro] 500 mg PO BID 05/06/17 Phenazopyridine [Pyridium] 200 mg PO DAILY 05/06/17 SITagliptin [Januvia] 50 mg PO BID 05/19/17 Fluconazole [Diflucan] 100 mg PO DAILY #5 tab 05/21/17 Acetaminophen [Acetaminophen Extra 2 tab PO Q6 PRN #24 tablet 07/08/17 Strength] Albuterol HFA [Ventolin HFA 90 2 puff IH [id number] PRN #1 inhaler 07/08/17 mcg/actuation (8 g)] Oseltamivir [Tamiflu] 75 mg PO BID #9 cap 07/08/17 Promethazine/Codeine 5 ml PO DAILY PRN #100 ml 07/08/17 [Codeine/Promethazine 10 MG/5 Ml-6.25 MG/5 Ml] Naproxen [Naprosyn] 500 mg PO BID PRN #14 tablet 08/12/17 - Allergies Allergies/Adverse Reactions: Allergies Allergy/AdvReac Type Severity Reaction Status Date / Time No Known Allergies Allergy Verified 08/12/17 06:55 Review of Systems ROS Statement: Except As Marked, All Systems Reviewed And Found Negative Musculoskeletal: Positive for: Shoulder Pain (left), Arm Pain (left shoulder pain radiates down into left arm) Physical Exam - Reviewed Nursing Documentation Reviewed: Yes Vital Signs Reviewed: Yes - Physical Exam Appears: Positive for: Non-toxic, No Acute Distress Skin: Positive for: Normal Color, Warm, Dry Neck: Positive for: Normal, Painless ROM, Supple Pulses-Radial (L): 2+ Pulses-Radial (R): 2+ Back: Positive for: Normal Inspection. Negative for: Vertebral Tenderness Extremity: Positive for: Tenderness (tenderness to left shoulder). Negative for : Normal ROM (Loss of ROM of left shoulder, left elbow is benign), Deformity Neurologic/Psych: Positive for: Alert, Oriented. Negative for: Motor/Sensory Deficits - ECG O2 Sat by Pulse Oximetry: 96 (RA) Pulse Ox Interpretation: Normal Medical Decision Making Medical Decision Makin Initial plan: * XR SHOULDER LEFT * Toradol 30mg IM * Re-eval Time: 09:29 Left Shoulder X-Ray FINDINGS: BONES: Minor localized productive changes or on minor calcification along the cortical clavicular ligament JOINTS: Mild degenerative osteoarthritis left acromioclavicular and glenohumeral joints. SOFT TISSUES: Normal. OTHER FINDINGS: None. IMPRESSION: No evidence of acute displaced fracture nor dislocation. Minor DJD as above. Scribe Attestation: Documented by Marcie Jhaveri acting as a scribe for Wilian Cierra CASTRO, DO. DO Scribe Attestation: All medical record entries made by the Scribe were at my direction and personally dictated by me. I have reviewed the chart and agree that the record accurately reflects my personal performance of the history, physical exam, medical decision making, and the department course for this patient. I have also personally directed, reviewed, and agree with the discharge instructions and disposition. Scribe Attestation: Documented by Rio Carballo, acting as a scribe for Luis Norton III, DO Provider Scribe Attestation: All medical record entries made by the Scribe were at my direction and personally dictated by me. I have reviewed the chart and agree that the record accurately reflects my personal performance of the history, physical exam, medical decision making, and the department course for this patient. I have also personally directed, reviewed, and agree with the discharge instructions and disposition. Disposition - Clinical Impression Clinical Impression: Shoulder pain - Patient ED Disposition Is Patient to be Admitted: No - Disposition Referrals: Jomar Macias MD [Primary Care Provider] - Collin Garcia MD [Medical Doctor] - Disposition: Routine/Home Disposition Time: 11:20 Condition: STABLE Additional Instructions: Return to ER for any worse or new symptoms Wear sling for 3 days only Use naprosyn for pain as directed Prescriptions: Naproxen [Naprosyn] 500 mg PO BID PRN #14 tablet PRN Reason: Pain, Moderate (4-7) Instructions: Shoulder Pain (ED) Forms: [email or web address] (Irish)
--- NOTE | 2017-08-12 09:30 | RAD ---
PROCEDURE: Radiographs of the Left Shoulder HISTORY: Left shoulder pain. 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 SOFT TISSUES: Normal. OTHER FINDINGS: None. IMPRESSION: No evidence of acute displaced fracture nor dislocation. Minor DJD as above.
--- NOTE | 2017-08-12 13:19 | CARD ---
APPROVED REPORT EKG Measurement Heart [id number] <Conclusion> Normal sinus rhythm Normal ECG
== END 2017-08-12 11:34 | disposition home or self-care (01) ==
LOC: H.ER 06:34
DX: M19.012 Primary osteoarthritis, left shoulder (principal)
CPT/HCPCS: 73030; 93005; 96372; 99283; J1885

== ENCOUNTER 2017-10-02 15:21 | Emergency (ER) | payer MEDICARE, MEDICAID ==
[2017-10-02 15:21] VITALS: BMI 29.2
[2017-10-02 15:34] VITALS: BP 109/66; PULSE 82; RESP 16; TEMP 98.3; O2SAT 96
[2017-10-02] MEDS ORDERED: Sodium Chloride 0.9% 1,000 ML IV STA (15:53)
--- NOTE | 2017-10-02 16:03 | ED PDOC ---
HPI: Abdomen Time Seen by Provider: 10/02/17 15:43 Chief Complaint (Nursing): Abdominal Pain History Per: Patient (This 62 yo male presents for evaluation of abdominal discomfort, bloating with mixed vomiting and loose stools for the past few days. Symptoms started about 4 days ago after he drank milk and then vomited after he woke up from sleeping. He has since had bloating generalized discomfort. He denies fever or chills but starting with vomiting and loose stools yesterday and which continued today.) History/Exam Limitations: no limitations Past Medical History Reviewed: Historical Data, Nursing Documentation, Vital Signs Vital Signs: Last Vital Signs Temp 98.3 F 10/02/17 15:32 Pulse 82 10/02/17 15:32 Resp 16 10/02/17 15:32 BP 109/66 10/02/17 15:32 Pulse Ox 96 10/02/17 16:04 - Medical History PMH: Arthritis, Asthma, Diabetes (type II), Gastritis, HTN, Hypercholesterolemia Denies: Chronic Kidney Disease - Surgical History Surgical History: Cholecystectomy - Family History Family History: States: Unknown Family Hx, Stroke (mother and father), Diabetes (mother NIDDM), Hypertension - Living Arrangements Living Arrangements: With Family - Home Medications Home Medications: Ambulatory Orders Medication Instructions Recorded Fluticasone Propionate [Flonase] 2 spr NS DAILY #1 bottle 10/21/15 Insulin Glargine, Recombina 25 units SQ HS 11/02/15 [Lantus] Simvastatin [Zocor] 20 mg PO HS 11/02/15 Lisinopril [Zestril] 5 mg PO DAILY #0 tab 11/04/15 Aspirin [Aspirin Chewable] 81 mg PO DAILY 05/06/17 Ciprofloxacin [Cipro] 500 mg PO BID 05/06/17 Phenazopyridine [Pyridium] 200 mg PO DAILY 05/06/17 SITagliptin [Januvia] 50 mg PO BID 05/19/17 Fluconazole [Diflucan] 100 mg PO DAILY #5 tab 05/21/17 Acetaminophen [Acetaminophen Extra 2 tab PO Q6 PRN #24 tablet 07/08/17 Strength] Albuterol HFA [Ventolin HFA 90 2 puff IH [id number] PRN #1 inhaler 07/08/17 mcg/actuation (8 g)] Oseltamivir [Tamiflu] 75 mg PO BID #9 cap 07/08/17 Promethazine/Codeine 5 ml PO DAILY PRN #100 ml 07/08/17 [Codeine/Promethazine 10 MG/5 Ml-6.25 MG/5 Ml] Naproxen [Naprosyn] 500 mg PO BID PRN #14 tablet 08/12/17 Bismuth Subsalicylate [Pepto 262 mg PO Q2H PRN #30 ctb 10/02/17 Bismol] Ondansetron [Zofran] 4 mg PO Q8H #9 tab 10/02/17 - Allergies Allergies/Adverse Reactions: Allergies Allergy/AdvReac Type Severity Reaction Status Date / Time No Known Allergies Allergy Verified 10/02/17 15:32 Review of Systems ROS Statement: Except As Marked, All Systems Reviewed And Found Negative Constitutional: Negative for: Fever, Chills Cardiovascular: Negative for: Chest Pain Respiratory: Negative for: Shortness of Breath Gastrointestinal: Positive for: Nausea, Vomiting, Abdominal Pain, Diarrhea. Negative for: Constipation, Melena, Hematochezia, Hematemesis, Rectal Pain Genitourinary Male: Negative for: Dysuria, Frequency Musculoskeletal: Negative for: Shoulder Pain, Back Pain Physical Exam - Reviewed Nursing Documentation Reviewed: Yes Vital Signs Reviewed: Yes - Physical Exam Appears: Positive for: Well, Non-toxic, No Acute Distress Head Exam: Positive for: ATRAUMATIC, NORMAL INSPECTION, NORMOCEPHALIC Skin: Positive for: Normal Color, Warm, DRY Eye Exam: Positive for: Normal appearance, EOMI ENT: Positive for: Normal ENT Inspection Neck: Positive for: Normal, Painless ROM, Supple Cardiovascular/Chest: Positive for: Regular Rate, Rhythm Respiratory: Positive for: CNT, Normal Breath Sounds Gastrointestinal/Abdominal: Positive for: Normal Exam, Soft, Tenderness ( minimal in the upper abdomen), Distended (softly). Negative for: Guarding, Rebound Back: Positive for: Normal Inspection Extremity: Positive for: Normal ROM Neurologic/Psych: Positive for: Alert, Oriented - Laboratory Results Result Diagrams: 10/02/17 16:32 10/02/17 16:32 - ECG O2 Sat by Pulse Oximetry: 96 Medical Decision Making Medical Decision Making: still feels a little gassy and crampy. Still has some loose stools. labs okay. x -rays - no obstruction. will d/c on peptobismol Disposition - Clinical Impression Clinical Impression: Gastroenteritis - Patient ED Disposition Is Patient to be Admitted: No Doctor Will See Patient In The: Office Counseled Patient/Family Regarding: Diagnosis, Need For Followup, Rx Given - Disposition Referrals: Kelsey Nuñez [Outside] Disposition: Routine/Home Disposition Time: 17:01 Condition: STABLE Prescriptions: Bismuth Subsalicylate [Pepto Bismol] 262 mg PO Q2H PRN #30 ctb PRN Reason: Diarrhea Ondansetron [Zofran] 4 mg PO Q8H #9 tab Instructions: Gastroenteritis (ED) Forms: [employer] (Lao) Print Language: MAORI - POA Present On Arrival: None
--- NOTE | 2017-10-02 16:27 | RAD ---
PROCEDURE: Radiographs of the chest and abdomen (obstructive series) HISTORY: Abdominal pain, nausea, vomiting, loose stool COMPARISON: No prior. TECHNIQUE: AP radiograph of the chest, with upright and supine radiographs of the abdomen. FINDINGS: CHEST: Lungs: The lungs are well inflated and clear. Cardiovascular: Normal size heart. No pulmonary vascular congestion. Pleura: No pleural fluid. No pneumothorax. Other findings: None. ABDOMEN AND PELVIS: Bowel: There is moderate amount of stool in the colon. The bowel gas pattern is nonspecific. Free air: None. Bones: Within normal limits for the patient's age. Other findings: Surgical clips in the right upper quadrant are related to prior cholecystectomy.. IMPRESSION: Constipation. Nonobstructive bowel-gas pattern. Clear lungs.
[2017-10-02 16:47] LABS: BASO % 0.5 % (0.0-2.0); EOS # 0.1 K/uL (0.0-0.7); EOS % 2.4 % (0.0-4.0); HEMOGLOBIN 14.1 g/dL (12.0-18.0); LYMPH # 1.7 K/uL (1.0-4.3); LYMPH % 26.6 % (20.0-40.0); MEAN CELL VOLUME 82.5 fl (80.0-94.0); MEAN CORPUSCULAR HEMOGLOBIN 27.2 pg (27.0-31.0); MEAN PLATELET VOLUME 9.1 fl (7.2-11.7); MONO # 0.5 K/uL (0.0-0.8); MONO % 7.5 % (0.0-10.0); NRBC % 0.1 % (0.0-0.0); RBC 5.19 Mil/uL (4.40-5.90); WHITE BLOOD COUNT 6.3 K/uL (4.8-10.8)
[2017-10-02 16:58] LABS: SQUAMOUS EPITHIAL < 1 /hpf (0-5); URINE BACTERIA RARE (<OCC); URINE BILIRUBIN NEGATIVE (NEGATIVE); URINE BLOOD NEGATIVE (NEGATIVE); URINE CLARITY SLIGHTY-CLOUDY (Clear); URINE COLOR YELLOW (YELLOW); URINE GLUCOSE (UA) >=500 mg/dL (Normal); URINE LEUKOCYTE ESTERASE NEG Leu/uL (Negative); URINE PROTEIN NEGATIVE (NEGATIVE)
[2017-10-02 16:58] LABS: ALB/GLOB RATIO 1.2 (1.0-2.1); ALBUMIN 3.2 g/dL (3.5-5.0); ALT/SGPT 32 U/L (21-72); AST/SGOT 32 U/L (17-59); BLOOD UREA NITROGEN 13 mg/dl (9-20); CALCIUM 8.3 mg/dL (8.4-10.2); GFR AFRICAN-AMERICAN > 60; GFR NON-AFRICAN AMERICAN > 60; LIPASE 43 U/L (23-300)
--- NOTE | 2017-10-04 18:22 | CARD ---
APPROVED REPORT EKG Measurement Heart [id number] <Conclusion> Normal sinus rhythm Normal ECG
== END 2017-10-02 17:09 | disposition home or self-care (01) ==
LOC: H.ER 15:21
DX: K52.9 Noninfective gastroenteritis and colitis, unspecified (principal); E11.9 Type 2 diabetes mellitus without complications; I10 Essential (primary) hypertension; J45.909 Unspecified asthma, uncomplicated; Z79.4 Long term (current) use of insulin; Z79.82 Long term (current) use of aspirin; E78.00 Pure hypercholesterolemia, unspecified
CPT/HCPCS: 74022; 80053; 81003; 82948; 83690; 85025; 93005; 96374; 99283; J7040

== ENCOUNTER 2017-10-18 02:40 | Emergency (ER) | payer MEDICARE, MEDICAID ==
[2017-10-18 02:40] VITALS: BMI 29.2
[2017-10-18] MEDS ORDERED: Sodium Chloride 0.9% 1,000 ML IV STA (03:28)
--- NOTE | 2017-10-18 03:36 | ED PDOC ---
HPI: General Adult Time Seen by Provider: 10/18/17 02:45 Chief Complaint (Nursing): Abdominal Pain Chief Complaint (Provider): Body Aches History Per: Patient History/Exam Limitations: no limitations Onset/Duration Of Symptoms: Days (x2) Current Symptoms Are (Timing): Still Present Additional Complaint(s): 62 year old male with a past medical history of arthritis, asthma, high cholesterol and dm presents to the ED complaining of body ache onset 2 days ago. Reports of associated symptoms of nausea and diarrhea. Patients states he was here on the for the same complaint and the symptoms went away but they came back. Denies fever. PMD: Provider TBD Past Medical History Reviewed: Historical Data, Nursing Documentation, Vital Signs Vital Signs: Last Vital Signs Temp 98.7 F 10/18/17 04:15 Pulse 85 10/18/17 06:00 Resp 20 10/18/17 06:00 BP 134/69 10/18/17 06:00 Pulse Ox 99 10/18/17 06:04 - Medical History PMH: Arthritis, Asthma, Diabetes (type II), Gastritis, HTN, Hypercholesterolemia Denies: Chronic Kidney Disease - Surgical History Surgical History: Cholecystectomy - Family History Family History: States: Unknown Family Hx, Stroke (mother and father), Diabetes (mother NIDDM), Hypertension - Home Medications Home Medications: Ambulatory Orders Medication Instructions Recorded Fluticasone Propionate [Flonase] 2 spr NS DAILY #1 bottle 10/21/15 Insulin Glargine, Recombina 25 units SQ HS 11/02/15 [Lantus] Simvastatin [Zocor] 20 mg PO HS 11/02/15 Lisinopril [Zestril] 5 mg PO DAILY #0 tab 11/04/15 Aspirin [Aspirin Chewable] 81 mg PO DAILY 05/06/17 Ciprofloxacin [Cipro] 500 mg PO BID 05/06/17 Phenazopyridine [Pyridium] 200 mg PO DAILY 05/06/17 SITagliptin [Januvia] 50 mg PO BID 05/19/17 Fluconazole [Diflucan] 100 mg PO DAILY #5 tab 05/21/17 Acetaminophen [Acetaminophen Extra 2 tab PO Q6 PRN #24 tablet 07/08/17 Strength] Albuterol HFA [Ventolin HFA 90 2 puff IH [id number] PRN #1 inhaler 07/08/17 mcg/actuation (8 g)] Oseltamivir [Tamiflu] 75 mg PO BID #9 cap 07/08/17 Promethazine/Codeine 5 ml PO DAILY PRN #100 ml 07/08/17 [Codeine/Promethazine 10 MG/5 Ml-6.25 MG/5 Ml] Naproxen [Naprosyn] 500 mg PO BID PRN #14 tablet 08/12/17 Bismuth Subsalicylate [Pepto 262 mg PO Q2H PRN #30 ctb 10/02/17 Bismol] Ondansetron [Zofran] 4 mg PO Q8H #9 tab 10/02/17 - Allergies Allergies/Adverse Reactions: Allergies Allergy/AdvReac Type Severity Reaction Status Date / Time No Known Allergies Allergy Verified 10/02/17 15:32 Review of Systems ROS Statement: Except As Marked, All Systems Reviewed And Found Negative Constitutional: Positive for: Other (body aches). Negative for: Fever Gastrointestinal: Positive for: Nausea, Diarrhea Physical Exam - Reviewed Nursing Documentation Reviewed: Yes Vital Signs Reviewed: Yes - Physical Exam Appears: Positive for: Well, Non-toxic, No Acute Distress Head Exam: Positive for: ATRAUMATIC, NORMAL INSPECTION, NORMOCEPHALIC Skin: Positive for: Normal Color, Warm Eye Exam: Positive for: EOMI, Normal appearance, PERRL ENT: Positive for: Normal ENT Inspection Neck: Positive for: Normal, Painless ROM, Supple. Negative for: Decreased ROM Cardiovascular/Chest: Positive for: Regular Rate, Rhythm. Negative for: Murmur Respiratory: Positive for: Normal Breath Sounds. Negative for: Decreased Breath Sounds, Accessory Muscle Use, Respiratory Distress Gastrointestinal/Abdominal: Positive for: Tenderness (diffused) Extremity: Positive for: Normal ROM. Negative for: Tenderness, Pedal Edema, Deformity Neurologic/Psych: Positive for: Alert, Oriented (x3). Negative for: Motor/ Sensory Deficits - Laboratory Results Result Diagrams: 10/18/17 04:04 10/18/17 04:04 - ECG O2 Sat by Pulse Oximetry: 99 (RA) Pulse Ox Interpretation: Normal Medical Decision Making Medical Decision Making: Time: 327 Initial Plan: --CMP --Lipase --CBC w/ differential --Normal Saline 1000 mls/hr --Pepcid 20mg --Zofran 4mg --Reevaluation Time: 0537 EXAM: CT Abdomen and Pelvis Without Intravenous Contrast FINDINGS: Lung bases: Mild parabronchial cuffing, which can be seen with bronchitis, reactive airway disease or viral pneumonitis versus mild failure.Bibasilar mild hazy patchy nonspecific infiltrates are present, consistent with atelectasis or pneumonia. Mediastinum: Small hiatal hernia. ABDOMEN: Liver: Possible fatty liver. Gallbladder and bile ducts: Cholecystectomy. Pancreas: Unremarkable. No ductal dilation. Spleen: Unremarkable. No splenomegaly. Adrenals: Unremarkable. No mass. Kidneys and ureters: Unremarkable. No obstructing stones. No hydronephrosis. Stomach and bowel: There are nonspecific fluid filled stomach, small bowel loops and colon. These findings can represent ileus versus gastroenteritis/enterocolitis versus slow transit versus peristalsis. Diverticulosis. There is thickening of the rectosigmoid region likely due to underdistention versus nonspecific colitis. Duodenal diverticulum. Appendix: The appendix is partially located in the Kong's pouch. Appendix is seen and is top normal in thickness measuring 6 to 7 mm with no periappendiceal stranding. PELVIS: Bladder: Partially decompressed bladder with bladder wall thickening. Correlation with urinalysis is recommended only if clinical cystitis is suspected. There is interval improvement in the appearance of the bladder when compared to prior examination from May 19, 2017. Reproductive: Enlarged prostate gland with calcifications. ABDOMEN and PELVIS: Intraperitoneal space: Unremarkable. No free air. No significant fluid collection. Bones/joints: No acute fracture. No dislocation. Soft tissues: Bilateral inguinal herniation of fat. Vasculature: The aorta demonstrates calcified plaque and is mildly ectatic but normal in caliber. Pelvic phleboliths. No abdominal aortic aneurysm. Lymph nodes: Subcentimeter mesenteric lymph nodes. IMPRESSION: 1. There are nonspecific fluid filled stomach, small bowel loops and colon. These findings can represent ileus versus gastroenteritis/enterocolitis versus slow transit versus peristalsis. 2.Mild parabronchial cuffing, which can be seen with bronchitis, reactive airway disease or viral pneumonitis versus mild failure.Bibasilar mild hazy patchy nonspecific infiltrates are present, consistent with atelectasis or pneumonia versus edema. Correlation with internal medicine evaluation and further workup or followup as recommended by patient's clinical data. Patient tolerated PO and will feels improved now.. discussed cT results. Patient's insulin-dependent and sugar was high and it will be checked again. Clinical Impression: Abdominal Pain, Gastroenteritis Upon provider evaluation patient is medically stable, and requires no further treatment in the ED at this time. Patient will be discharged. Counseling was provided and all questions were answered regarding diagnosis and need for follow up with PMD. There is agreement to discharge plan. Return if symptoms persist or worsen. Scribe Attestation: Documented by Ravi Gentile, acting as a scribe for Colten Barber MD Provider Scribe Attestation: All medical record entries made by the Scribe were at my direction and personally dictated by me. I have reviewed the chart and agree that the record accurately reflects my personal performance of the history, physical exam, medical decision making, and the department course for this patient. I have also personally directed, reviewed, and agree with the discharge instructions and disposition. Disposition - Clinical Impression Clinical Impression: Gastroenteritis, Abdominal pain - Patient ED Disposition Is Patient to be Admitted: No Counseled Patient/Family Regarding: Diagnosis, Need For Followup - Disposition Referrals: [facility] [Outside] [facility] [Outside] Disposition: Routine/Home Disposition Time: 05:55 Condition: IMPROVED Additional Instructions: follow up with your primary doctor in 1-2 days return to the ED with any worsening or concerning symptoms bland diet, advance diet slowly Instructions: Viral Gastroenteritis, Adult (DC) Forms: [employer] (Congolese) Print Language: ECUADOREAN
[2017-10-18 04:09] LABS: EOS # 0.3 K/uL (0.0-0.7); EOS % 3.6 % (0.0-4.0); HEMOGLOBIN 15.6 g/dL (12.0-18.0); LYMPH # 0.8 K/uL (1.0-4.3); MEAN CORPUSCULAR HEMOGLOBIN 27.9 pg (27.0-31.0); MEAN CORPUSCULAR HGB CONC 34.5 g/dL (33.0-37.0); MONO # 0.6 K/uL (0.0-0.8); MONO % 7.3 % (0.0-10.0); NEUT # 6.2 K/uL (1.8-7.0); NEUT % 79.1 % (50.0-75.0); RBC 5.6 Mil/uL (4.40-5.90); RED CELL DISTRIBUTION WIDTH 13.9 % (11.5-14.5); WHITE BLOOD COUNT 7.8 K/uL (4.8-10.8)
[2017-10-18 04:17] VITALS: TEMP 98.7
[2017-10-18 04:26] LABS: ALB/GLOB RATIO 1.1 (1.0-2.1); ALBUMIN 3.5 g/dL (3.5-5.0); ALT/SGPT 33 U/L (21-72); AST/SGOT 21 U/L (17-59); BLOOD UREA NITROGEN 20 mg/dl (9-20); CALCIUM 8.4 mg/dL (8.4-10.2); GFR AFRICAN-AMERICAN > 60; GFR NON-AFRICAN AMERICAN > 60; LIPASE 52 U/L (23-300)
[2017-10-18 04:38] LABS: SQUAMOUS EPITHIAL < 1 /hpf (0-5); URINE BILIRUBIN NEGATIVE (NEGATIVE); URINE BLOOD NEGATIVE (NEGATIVE); URINE CLARITY SLIGHTY-CLOUDY (Clear); URINE COLOR YELLOW (YELLOW); URINE GLUCOSE (UA) >=500 mg/dL (Normal); URINE LEUKOCYTE ESTERASE NEG Leu/uL (Negative); URINE PROTEIN 30 mg/dL (NEGATIVE)
--- NOTE | 2017-10-18 05:38 | CT ---
EXAM: CT Abdomen and Pelvis Without Intravenous Contrast CLINICAL HISTORY: 62 years old, male; Pain; Abdominal pain; Generalized; Prior surgery; Surgery date: 6+ months; Surgery type: Gall ladder; Additional info: Abd pain TECHNIQUE: Axial computed tomography images of the abdomen and pelvis without intravenous contrast. All CT scans at this facility use one or more dose reduction techniques, viz.: automated exposure control; ma/kV adjustment per patient size (including targeted exams where dose is matched to indication; i.e. head); or iterative reconstruction technique. 613 images are submitted. Axial images are submitted in soft tissue and lung windows. Coronal and sagittal reformatted images were created and reviewed. COMPARISON: CT - ABD PELVIS W/O PO OR IV CONT 2017-05-19 01:13 FINDINGS: Lung bases: Mild parabronchial cuffing, which can be seen with bronchitis, reactive airway disease or viral pneumonitis versus mild failure.Bibasilar mild hazy patchy nonspecific infiltrates are present, consistent with atelectasis or pneumonia. Mediastinum: Small hiatal hernia. ABDOMEN: Liver: Possible fatty liver. Gallbladder and bile ducts: Cholecystectomy. Pancreas: Unremarkable. No ductal dilation. Spleen: Unremarkable. No splenomegaly. Adrenals: Unremarkable. No mass. Kidneys and ureters: Unremarkable. No obstructing stones. No hydronephrosis. Stomach and bowel: There are nonspecific fluid filled stomach, small bowel loops and colon. These findings can represent ileus versus gastroenteritis/enterocolitis versus slow transit versus peristalsis. Diverticulosis. There is thickening of the rectosigmoid region likely due to underdistention versus nonspecific colitis. Duodenal diverticulum. Appendix: The appendix is partially located in the Kong's pouch. Appendix is seen and is top normal in thickness measuring 6 to 7 mm with no periappendiceal stranding. PELVIS: Bladder: Partially decompressed bladder with bladder wall thickening. Correlation with urinalysis is recommended only if clinical cystitis is suspected. There is interval improvement in the appearance of the bladder when compared to prior examination from May 19, 2017. Reproductive: Enlarged prostate gland with calcifications. ABDOMEN and PELVIS: Intraperitoneal space: Unremarkable. No free air. No significant fluid collection. Bones/joints: No acute fracture. No dislocation. Soft tissues: Bilateral inguinal herniation of fat. Vasculature: The aorta demonstrates calcified plaque and is mildly ectatic but normal in caliber. Pelvic phleboliths. No abdominal aortic aneurysm. Lymph nodes: Subcentimeter mesenteric lymph nodes. IMPRESSION: 1. There are nonspecific fluid filled stomach, small bowel loops and colon. These findings can represent ileus versus gastroenteritis/enterocolitis versus slow transit versus peristalsis. 2.Mild parabronchial cuffing, which can be seen with bronchitis, reactive airway disease or viral pneumonitis versus mild failure.Bibasilar mild hazy patchy nonspecific infiltrates are present, consistent with atelectasis or pneumonia versus edema. Correlation with internal medicine evaluation and further workup or followup as recommended by patient's clinical data.
[2017-10-18] MEDS ORDERED: Insulin Regular 100 units/ml SC STA (05:59)
[2017-10-18 06:00] VITALS: BP 134/69; PULSE 85; RESP 20
[2017-10-18 06:04] VITALS: O2SAT 99
[2017-10-18] MEDS ORDERED: Insulin Regular 100 units/ml ONE (06:05)
== END 2017-10-18 07:00 | disposition home or self-care (01) ==
LOC: H.ER 02:40
DX: K52.9 Noninfective gastroenteritis and colitis, unspecified (principal); E11.9 Type 2 diabetes mellitus without complications; E78.00 Pure hypercholesterolemia, unspecified; I10 Essential (primary) hypertension; J45.909 Unspecified asthma, uncomplicated; M19.90 Unspecified osteoarthritis, unspecified site; Z79.4 Long term (current) use of insulin; Z79.82 Long term (current) use of aspirin
CPT/HCPCS: 74176; 80053; 81003; 82948; 83690; 85025; 87086; 96361; 96374; 96375; 99284; J2405; J7040

== ENCOUNTER 2018-04-05 06:38 | Emergency (ER) | payer MEDICARE, MEDICAID ==
[2018-04-05 06:38] VITALS: BMI 29.2
[2018-04-05] MEDS ORDERED: Albuterol-Ipratrop 3 mg / 0.5 (3 ml) UD IH STA ×2 (07:37→09:23)
--- NOTE | 2018-04-05 07:43 | ED PDOC ---
HPI: CCC, URI, Sore Throat Time Seen by Provider: 04/05/18 07:34 Chief Complaint (Nursing): Flu-like Symptoms Chief Complaint (Provider): Flu-like Symptoms History Per: Patient History/Exam Limitations: no limitations Onset/Duration Of Symptoms: Days (x 2) Current Symptoms Are (Timing): Still Present Location Of Pain: Throat, Headache Additional Complaint(s): 63 year old male with a history of asthma presents with a productive cough with white sputum, sore throat, headache, fever, wheezing and shortness of breath for 2 days. Patient reports no improvement with inhalers and PO antibiotics prescribed by PMD. Offers no other complaints. PMD: none provided Past Medical History Reviewed: Historical Data, Nursing Documentation, Vital Signs - Medical History PMH: Arthritis, Asthma, Diabetes (type II), Gastritis, HTN, Hypercholesterolemia Denies: Chronic Kidney Disease - Surgical History Surgical History: Cholecystectomy - Family History Family History: States: Unknown Family Hx, Stroke (mother and father), Diabetes (mother NIDDM), Hypertension - Home Medications Home Medications: Ambulatory Orders Medication Instructions Recorded Fluticasone Propionate [Flonase] 2 spr NS DAILY #1 bottle 10/21/15 Insulin Glargine, Recombina 25 units SQ HS 11/02/15 [Lantus] Simvastatin [Zocor] 20 mg PO HS 11/02/15 Lisinopril [Zestril] 5 mg PO DAILY #0 tab 11/04/15 Aspirin [Aspirin Chewable] 81 mg PO DAILY 05/06/17 Ciprofloxacin [Cipro] 500 mg PO BID 05/06/17 Phenazopyridine [Pyridium] 200 mg PO DAILY 05/06/17 SITagliptin [Januvia] 50 mg PO BID 05/19/17 Fluconazole [Diflucan] 100 mg PO DAILY #5 tab 05/21/17 Acetaminophen [Acetaminophen Extra 2 tab PO Q6 PRN #24 tablet 07/08/17 Strength] Albuterol HFA [Ventolin HFA 90 2 puff IH [id number] PRN #1 inhaler 07/08/17 mcg/actuation (8 g)] Oseltamivir [Tamiflu] 75 mg PO BID #9 cap 07/08/17 Promethazine/Codeine 5 ml PO DAILY PRN #100 ml 07/08/17 [Codeine/Promethazine 10 MG/5 Ml-6.25 MG/5 Ml] Naproxen [Naprosyn] 500 mg PO BID PRN #14 tablet 08/12/17 Bismuth Subsalicylate [Pepto 262 mg PO Q2H PRN #30 ctb 10/02/17 Bismol] Ondansetron [Zofran] 4 mg PO Q8H #9 tab 10/02/17 Albuterol HFA [Ventolin HFA 90 2 puff IH Q4H #1 puff 04/05/18 mcg/actuation (8 g)] Azithromycin [Zithromax] 500 mg PO DAILY #6 tab 04/05/18 Prednisone 50 mg PO DAILY #5 tab 04/05/18 - Allergies Allergies/Adverse Reactions: Allergies Allergy/AdvReac Type Severity Reaction Status Date / Time No Known Allergies Allergy Verified 10/02/17 15:32 Review of Systems ROS Statement: Except As Marked, All Systems Reviewed And Found Negative Constitutional: Positive for: Fever ENT: Positive for: Throat Pain Respiratory: Positive for: Cough, Shortness of Breath, Sputum (white), Wheezing Neurological: Positive for: Headache Physical Exam - Reviewed Nursing Documentation Reviewed: Yes Vital Signs Reviewed: Yes - Physical Exam Appears: Positive for: Non-toxic, No Acute Distress Head Exam: Positive for: ATRAUMATIC Skin: Positive for: Normal Color, Warm, Dry Eye Exam: Positive for: EOMI, Normal appearance, PERRL ENT: Positive for: Normal ENT Inspection Neck: Positive for: Normal, Painless ROM, Supple Cardiovascular/Chest: Positive for: Regular Rate, Rhythm. Negative for: Murmur Respiratory: Positive for: Rhonchi (scattered rhonchi bilaterally), Wheezing (mild expiratory wheezing). Negative for: Respiratory Distress Gastrointestinal/Abdominal: Positive for: Normal Exam, Soft. Negative for: Tenderness Extremity: Positive for: Normal ROM (x 4). Negative for: Deformity Neurologic/Psych: Positive for: Alert, Oriented (x 3). Negative for: Motor/Sensory Deficits - ECG Pulse Ox Interpretation: Normal Medical Decision Making Medical Decision Makin:17 Initial Plan: --Chest x-ray --Duoneb 3 ml INH --Peak flow pre/post --influenza AB --Rapid strep 08:38 Chest x-ray FINDINGS: LUNGS: Mild stable interstitial changes are appreciated. Minor bibasilar volume loss is noted. No focal alveolar infiltrate is seen. PLEURA: No significant pleural effusion identified. No pneumothorax apparent. CARDIOVASCULAR: Normal. OSSEOUS STRUCTURES: Degenerative changes in the spine. VISUALIZED UPPER ABDOMEN: Normal. OTHER FINDINGS: None. IMPRESSION: No focal infiltrate. No CHF. Stable mild interstitial changes. Results are negative for influenza and strep. Scribe Attestation: Documented by Jennifer Simms acting as a scribe for Tu Ocasio MD Provider Scribe Attestation: All medical record entries made by the Scribe were at my direction and personally dictated by me. I have reviewed the chart and agree that the record accurately reflects my personal performance of the history, physical exam, medical decision making, and the department course for this patient. I have also personally directed, reviewed, and agree with the discharge instructions and disposition. Disposition - Clinical Impression Clinical Impression: Asthma attack, Upper respiratory infection - Patient ED Disposition Is Patient to be Admitted: No Counseled Patient/Family Regarding: Studies Performed, Diagnosis, Need For Followup, Rx Given - Disposition Referrals: [facility] [Outside] Disposition: Routine/Home Disposition Time: 09:21 Condition: FAIR Prescriptions: Albuterol HFA [Ventolin HFA 90 mcg/actuation (8 g)] 2 puff IH Q4H #1 puff Azithromycin [Zithromax] 500 mg PO DAILY #6 tab Prednisone 50 mg PO DAILY #5 tab Instructions: Asthma in Adults, Bacterial Upper Respiratory Infection, Adult Forms: [employer] ([place])
--- NOTE | 2018-04-05 08:40 | RAD ---
Date of service: 04/05/2018 HISTORY: cough COMPARISON: No prior. TECHNIQUE: Chest PA and lateral FINDINGS: LUNGS: Mild stable interstitial changes are appreciated. Minor bibasilar volume loss is noted. No focal alveolar infiltrate is seen. PLEURA: No significant pleural effusion identified. No pneumothorax apparent. CARDIOVASCULAR: Normal. OSSEOUS STRUCTURES: Degenerative changes in the spine. VISUALIZED UPPER ABDOMEN: Normal. OTHER FINDINGS: None. IMPRESSION: No focal infiltrate. No CHF. Stable mild interstitial changes.
[2018-04-05] MEDS ORDERED: Albuterol-Ipratrop 3 mg / 0.5 (3 ml) UD ONE (09:38)
[2018-04-05 10:45] VITALS: O2SAT 98
== END 2018-04-05 10:45 | disposition home or self-care (01) ==
LOC: H.ER 06:38
DX: J45.909 Unspecified asthma, uncomplicated (principal); J06.9 Acute upper respiratory infection, unspecified; E11.9 Type 2 diabetes mellitus without complications; E78.00 Pure hypercholesterolemia, unspecified; I10 Essential (primary) hypertension; Z79.4 Long term (current) use of insulin

== ENCOUNTER 2018-05-03 20:22 | Emergency (ER) | payer MEDICARE, MEDICAID ==
[2018-05-03 20:22] VITALS: BMI 29.2
[2018-05-03 21:31] VITALS: RESP 16; O2SAT 96
[2018-05-03] MEDS ORDERED: Sodium Chloride 0.9% 1,000 ML IV STA (21:57)
--- NOTE | 2018-05-03 22:25 | ED PDOC ---
History of Present Illness History of Present Illness: 63 year old male with a history of dm, htn, and dyslipidemia presents to the ED with flu-like symptoms for x2 days. Patient has body aches, headache, sore throat, and fever. He saw his PMD today who put him on amoxicillin, of which he took 2 doses. Since then, symptoms have worsened, prompting ED visit. He denies chest pain, shortness of breath, vomiting, diarrhea or any other me dical complaints. PMD: Dr. Macias HPI: Influenza Time Seen by Provider: 05/03/18 21:55 Chief Complaint: Flu-like Symptoms Chief Complaint (Provider): Flu-like Symptoms History Per: Patient Exam Limitations: no limitations Onset/Duration Of Symptoms: Days (x2) Symptoms include: fever, headache, bodyaches, sore throat. denies: vomiting, diarrhea Past Medical History Reviewed: Historical Data, Nursing Documentation, Vital Signs Vital Signs: Last Vital Signs Temp 101.7 F H 05/03/18 21:26 Pulse 105 H 05/03/18 21:26 Resp 16 05/03/18 21:26 BP 155/75 H 05/03/18 21:26 Pulse Ox 96 05/03/18 21:26 - Medical History PMH: Arthritis, Asthma, Diabetes (type II), Gastritis, HTN, Hypercholesterolemia Denies: Chronic Kidney Disease - Surgical History Surgical History: Cholecystectomy - Family History Family History: States: Unknown Family Hx, Stroke (mother and father), Diabetes (mother NIDDM), Hypertension - Social History Current smoker - smoking cessation education provided: No Ex-Smoker (has not smoked in the last 12 months): No Alcohol: None Drugs: Denies - Home Medications Home Medications: Ambulatory Orders Medication Instructions Recorded Fluticasone Propionate [Flonase] 2 spr NS DAILY #1 bottle 10/21/15 Insulin Glargine, Recombina 25 units SQ HS 11/02/15 [Lantus] Simvastatin [Zocor] 20 mg PO HS 11/02/15 Lisinopril [Zestril] 5 mg PO DAILY #0 tab 11/04/15 Aspirin [Aspirin Chewable] 81 mg PO DAILY 05/06/17 Ciprofloxacin [Cipro] 500 mg PO BID 05/06/17 Phenazopyridine [Pyridium] 200 mg PO DAILY 05/06/17 SITagliptin [Januvia] 50 mg PO BID 05/19/17 Fluconazole [Diflucan] 100 mg PO DAILY #5 tab 05/21/17 Acetaminophen [Acetaminophen Extra 2 tab PO Q6 PRN #24 tablet 07/08/17 Strength] Albuterol HFA [Ventolin HFA 90 2 puff IH [id number] PRN #1 inhaler 07/08/17 mcg/actuation (8 g)] Oseltamivir [Tamiflu] 75 mg PO BID #9 cap 07/08/17 Promethazine/Codeine 5 ml PO DAILY PRN #100 ml 07/08/17 [Codeine/Promethazine 10 MG/5 Ml-6.25 MG/5 Ml] Naproxen [Naprosyn] 500 mg PO BID PRN #14 tablet 08/12/17 Bismuth Subsalicylate [Pepto 262 mg PO Q2H PRN #30 ctb 10/02/17 Bismol] Ondansetron [Zofran] 4 mg PO Q8H #9 tab 10/02/17 Albuterol HFA [Ventolin HFA 90 2 puff IH Q4H #1 puff 04/05/18 mcg/actuation (8 g)] Azithromycin [Zithromax] 500 mg PO DAILY #6 tab 04/05/18 Prednisone 50 mg PO DAILY #5 tab 04/05/18 Oseltamivir [Tamiflu] 75 mg PO BID #10 cap 05/04/18 - Allergies Allergies/Adverse Reactions: Allergies Allergy/AdvReac Type Severity Reaction Status Date / Time No Known Allergies Allergy Verified 05/03/18 21:26 Review of Systems ROS Statement: Except As Marked, All Systems Reviewed And Found Negative Constitutional: Positive for: Fever ENT: Positive for: Throat Pain Cardiovascular: Negative for: Chest Pain Respiratory: Negative for: Shortness of Breath Gastrointestinal: Negative for: Vomiting, Diarrhea Neurological: Positive for: Headache Physical Exam - Reviewed Nursing Documentation Reviewed: Yes Vital Signs Reviewed: Yes - Physical Exam Appears: Positive for: Uncomfortable Head Exam: Positive for: ATRAUMATIC, NORMOCEPHALIC Skin: Positive for: Normal Color, Warm, Dry Eye Exam: Positive for: Normal appearance, EOMI, PERRL ENT: Positive for: Other (dry mucous membranes) Neck: Positive for: Normal Cardiovascular/Chest: Positive for: Tachycardia, Other (regular rhythm) Respiratory: Positive for: Normal Breath Sounds. Negative for: Respiratory Distress Gastrointestinal/Abdominal: Positive for: Normal Exam, Soft. Negative for: Tenderness Extremity: Positive for: Normal ROM. Negative for: Pedal Edema, Deformity Neurologic/Psych: Positive for: Alert, Oriented (x3) Medical Decision Making Medical Decision Making: Time: 2155 Initial Impression: 63 year old with flu-like symptoms Initial Plan: --labs --EKG --CXR --IV fluids --Toradol --Tylenol Time: 00:50 Labs reviewed no clinically significant abnormalities. Patient reports improvement of symptoms and is stable for discharge. Diagnosis is influenza-like syndrome. Will treat patient for flu despite negative flu swab due to high cl inical suspicion based on symptoms and presentation. Patient was informed of return precautions and there is agreement to plan. Scribe Attestation: Documented by Simi Stephens, acting as a scribe for Corbin Cleaning MD Provider Scribe Attestation: All medical record entries made by the Scribe were at my direction and personally dictated by me. I have reviewed the chart and agree that the record accurately reflects my personal performance of the history, physical exam, medical decision making, and the department course for this patient. I have also personally directed, reviewed, and agree with the discharge instructions and disposition. - Laboratory Results Result Diagrams: 05/03/18 22:48 05/03/18 22:48 - ECG O2 Sat by Pulse Oximetry: 96 (RA) Pulse Ox Interpretation: Normal Disposition - Clinical Impression Clinical Impression: Influenza-like symptoms - Patient ED Disposition Is Patient to be Admitted: No - Disposition Disposition: Routine/Home Disposition Time: 00:50 Condition: STABLE Additional Instructions: LOIDA RAMSEY, thank you for letting us take care of you today. Your provider was Corbin Cleaning MD and you were treated for THROAT PAIN,FEVER. The emergency medical care you received today was directed at your acute symptoms. If you were prescribed any medication, please fill it and take as directed. It may take several days for your symptoms to resolve. Return to the Emergency Department if your symptoms worsen, do not improve, or if you have any other problems. Please contact your doctor or call one of the physicians/clinics you have been referred to that are listed on the Patient Visit Information form that is incl uded in your discharge packet. Bring any paperwork you were given at discharge with you along with any medications you are taking to your follow up visit. Our treatment cannot replace ongoing medical care by a primary care provider outside of the emergency department. Thank you for allowing the [facility] team to be part of your care today. If you had an X-Ray or CT scan: A Radiologist will review the ED reading if any change in treatment is needed we will contact you. If you had a blood, urine, or wound culture: It will take several days for the results, if any change in treatment is needed we will contact you. If you had an STI test: It will take 48 hours for the results. Please call after 1 week if you have not heard back. Prescriptions: Oseltamivir [Tamiflu] 75 mg PO BID #10 cap Instructions: Flu Forms: [employer] (Sami) Print Language: GABONESE
[2018-05-03 22:56] LABS: BASO # 0.2 K/uL (0.0-0.2); BASO % 1.1 % (0.0-2.0); EOS % 0.1 % (0.0-4.0); HEMOGLOBIN 14.8 g/dL (12.0-18.0); LYMPH # 1.2 K/uL (1.0-4.3); LYMPH % 8.8 % (20.0-40.0); MEAN CELL VOLUME 83.2 fl (80.0-94.0); MEAN CORPUSCULAR HEMOGLOBIN 27.4 pg (27.0-31.0); MEAN CORPUSCULAR HGB CONC 32.9 g/dL (33.0-37.0); MEAN PLATELET VOLUME 8.6 fl (7.2-11.7); MONO # 0.8 K/uL (0.0-0.8); MONO % 5.9 % (0.0-10.0); NEUT # 11.2 K/uL (1.8-7.0); NEUT % 84.1 % (50.0-75.0); NRBC % 0.1 % (0.0-0.0); PLATELET COUNT 241 K/uL (130-400); RBC 5.41 Mil/uL (4.40-5.90); RED CELL DISTRIBUTION WIDTH 14.2 % (11.5-14.5); WHITE BLOOD COUNT 13.3 K/uL (4.8-10.8)
[2018-05-03 23:05] LABS: ALB/GLOB RATIO 1.3 (1.0-2.1); ALT/SGPT 27 U/L (21-72); AST/SGOT 19 U/L (17-59); BLOOD UREA NITROGEN 17 mg/dl (9-20); GFR NON-AFRICAN AMERICAN > 60
[2018-05-03 23:46] LABS: EOSINOPHIL 2 % (0-7); LYMPHOCYTE 11 % (20-50); MONOCYTE 8 % (0-10); NEUTROPHIL 76 % (42-75); PLATELET ESTIMATE NORMAL (NORMAL); REACTIVE LYMPHOCYTES 3 % (0-0); TOTAL CELLS COUNTED 100
[2018-05-04 01:22] LABS: URINE BILIRUBIN NEGATIVE (NEGATIVE); URINE BLOOD NEGATIVE (NEGATIVE); URINE CLARITY SLIGHTY-CLOUDY (Clear); URINE COLOR YELLOW (YELLOW); URINE GLUCOSE (UA) >=500 mg/dL (Normal); URINE LEUKOCYTE ESTERASE NEG Leu/uL (Negative); URINE PROTEIN NEGATIVE (NEGATIVE); URINE UROBILINOGEN 0.2-1.0 mg/dL (0.2-1.0)
[2018-05-04 03:24] VITALS: BP 123/61; PULSE 77; TEMP 98.6
--- NOTE | 2018-05-04 08:50 | RAD ---
Date of service: 05/03/2018 HISTORY: chest pain COMPARISON: No prior. FINDINGS: LUNGS: No active pulmonary disease. PLEURA: No significant pleural effusion identified, no pneumothorax apparent. CARDIOVASCULAR: No aortic atherosclerotic calcification present. Normal cardiac size. No pulmonary vascular congestion. OSSEOUS STRUCTURES: No significant abnormalities. VISUALIZED UPPER ABDOMEN: Normal. OTHER FINDINGS: None. IMPRESSION: No active disease.
--- NOTE | 2018-05-04 10:01 | CARD ---
APPROVED REPORT Date of service: 05/04/2018 EKG Measurement Heart [id number] <Conclusion> Normal sinus rhythm Normal ECG
== END 2018-05-04 01:20 | disposition home or self-care (01) ==
LOC: H.ER 20:22
DX: J11.1 Influenza due to unidentified influenza virus with other respiratory manifestations (principal); E11.9 Type 2 diabetes mellitus without complications; I10 Essential (primary) hypertension; J45.909 Unspecified asthma, uncomplicated; Z79.4 Long term (current) use of insulin; Z79.82 Long term (current) use of aspirin; Z87.891 Personal history of nicotine dependence; E78.00 Pure hypercholesterolemia, unspecified
CPT/HCPCS: 71045; 80053; 81003; 83605; 85025; 87040; 87804; 93005; 96374; 99284; J1885; J7030